=== PATIENT | female | born 1980 | race Caucasian/White ===

== ENCOUNTER 2017-12-07 11:12 | Emergency (ER) | payer BC ==
[2017-12-07] MEDS ORDERED: NORMAL SALINE 1000 ML 1,000 ML IV ONE ×2 (11:34→12:17)
[2017-12-07] MEDS ORDERED: ONDANSETRON HCL INJ/PF 4 MG/2 ML SDV IV ONE (11:35)
[2017-12-07] MEDS ORDERED: MORPHINE SULFATE 10 MG/ML INJ IV ONE (11:35)
--- NOTE | 2017-12-07 11:36 | ER Document Report ---
ED Medical Screen (RME) - General Chief Complaint: Abdominal Pain Stated Complaint: ABDOMINAL PAIN Time Seen by Provider: 12/07/17 11:33 Mode of Arrival: Wheelchair Information source: Patient Notes: This is a 37-year-old female with a history of chronic back pain who was recently placed on prednisone/Toradol/cyclobenzaprine for exacerbation of her back pain. She awoke this morning with acute left flank and left abdominal pain. She has had a kidney stone once in the past but states it does not feel like that. She denies any blood in the urine. She has had diarrhea. She denies any blood in the stool. She denies any nausea or vomiting. She denies fever. She is doubled over in triage. TRAVEL OUTSIDE OF THE [place] IN LAST 30 DAYS: No - Related Data Allergies/Adverse Reactions: gabapentin Allergy (Verified 12/07/17 11:15) pregabalin [From Lyrica] Allergy (Verified 12/07/17 11:15) Past Medical History - Social History Chew tobacco use (# tins/day): No Frequency of alcohol use: None Drug Abuse: None Renal/ Medical History: Denies: Hx Peritoneal Dialysis Physical Exam - Vital signs Vitals: Temp Pulse Resp BP Pulse Ox 99.0 F 63 18 131/75 H 100 12/07/17 11:20 12/07/17 11:20 12/07/17 11:20 12/07/17 11:20 12/07/17 11:20 Course - Vital Signs Vital signs: Temp Pulse Resp BP Pulse Ox 99.0 F 63 18 131/75 H 100 12/07/17 11:20 12/07/17 11:20 12/07/17 11:20 12/07/17 11:20 12/07/17 11:20
[2017-12-07] MEDS ORDERED: HYDROMORPHONE HCL INJ/PF 2 MG/ML AMPULE IV ONE ×2 (12:16→17:52)
[2017-12-07 12:23] LABS: APPEARANCE,URINE SLIGHTLY-CLOUDY; BILIRUBIN,URINE NEGATIVE (NEGATIVE); COLOR,URINE YELLOW; GLUCOSE, URINE NEGATIVE (NEGATIVE); KETONES,URINE NEGATIVE (NEGATIVE); LEUKOCYTE ESTERASE,URINE NEGATIVE (NEGATIVE); NITRITE,URINE NEGATIVE (NEGATIVE); PROTEIN,URINE NEGATIVE (NEGATIVE); URINE SPECIFIC GRAVITY 1.025
--- NOTE | 2017-12-07 12:23 | ER Document Report ---
ED GI/ - General Chief Complaint: Abdominal Pain Stated Complaint: ABDOMINAL PAIN Time Seen by Provider: 12/07/17 11:33 Mode of Arrival: Wheelchair Information source: Patient Notes: Chief complaint: abdominal pain History of complain:( obtained from----patient) 37 years old female, with a history of lower back pain, last Friday treated in urgent care, today this morning woke up with severe abdominal pain and distention, associated with nausea no vomiting. No diarrhea or constipation. One time she when she went to the bathroom she felt sharp pain on the left shoulder region, by the time she came back and laid down the pain has subsided. Denies any precordial pain. Denies any dysuria frequency urgency. Onset: As above Duration: Since this morning Severity: Severe Quality: Sharp Context: Unknown Exacerbating factor and relieving factors: Change of position REVIEW OF SYSTEMS: CONSTITUTIONAL : Denies fever, chills, or sweats. Denies recent illness. EENT: Denies eye, ear, throat, or mouth pain or symptoms. Denies nasal or sinus congestion or discharge. Denies throat, tongue, or mouth swelling or difficulty swallowing. CARDIOVASCULAR: Denies chest pain. Denies palpitations or racing or irregular heart beat. Denies ankle edema. RESPIRATORY: Denies cough, cold, or chest congestion. Denies shortness of breath, difficulty breathing, or wheezing. GASTROINTESTINAL: . Denies vomiting, or diarrhea. Denies blood in vomitus, stools, or per rectum. Denies black, tarry stools. Denies constipation. GENITOURINARY: Denies difficulty urinating, painful urination, burning, frequency, blood in urine, or discharge. FEMALE GENITOURINARY: Denies vaginal bleeding, heavy or abnormal periods, irregular periods. Denies vaginal discharge or odor. MUSCULOSKELETAL: Denies back or neck pain or stiffness. Denies joint pain or swelling. SKIN: Denies rash, lesions or sores. HEMATOLOGIC : Denies easy bruising or bleeding. LYMPHATIC: Denies swollen, enlarged glands. NEUROLOGICAL: Denies confusion or altered mental status. Denies passing out or loss of consciousness. Denies dizziness or lightheadedness. Denies headache. Denies weakness or paralysis or loss of use of either side. Denies problems with gait or speech. Denies sensory loss, numbness, or tingling. Denies seizures. PSYCHIATRIC: Denies anxiety or stress. Denies depression, suicidal ideation, or homicidal ideation. ALL OTHER SYSTEMS REVIEWED AND NEGATIVE. PHYSICAL EXAMINATION: GENERAL: Well-appearing, well-nourished and in moderate to severe discomfort acute distress. HEAD: Atraumatic, normocephalic. EYES: Pupils equal round and reactive to light, extraocular movements intact, conjunctiva are normal. ENT: Nares patent, oropharynx clear without exudates. Moist mucous membranes. NECK: Normal range of motion, supple without lymphadenopathy LUNGS: Breath sounds clear to auscultation bilaterally and equal. No wheezes rales or rhonchi. HEART: Regular rate and rhythm without murmurs ABDOMEN: Soft, appears to be slightly distended diffusely tender, guarding, rigid, nondistended abdomen. No guarding, no rebound. No masses appreciated. Female : deferred Musculoskeletal: Normal range of motion, no pitting or edema. No cyanosis. NEUROLOGICAL: Cranial nerves grossly intact. Normal speech, normal gait. Normal sensory, motor exams PSYCH: Normal mood, normal affect. SKIN: Warm, Dry, normal turgor, no rashes or lesions noted. Dictation was performed using [employer] voice recognition software TRAVEL OUTSIDE OF THE [place] IN LAST 30 DAYS: No - HPI Notes: 12/08/17 09:17 Dictated - Related Data Allergies/Adverse Reactions: gabapentin Allergy (Verified 12/07/17 11:15) pregabalin [From Lyrica] Allergy (Verified 12/07/17 11:15) Past Medical History - General Information source: Patient - Social History Smoking Status: Never Smoker Chew tobacco use (# tins/day): No Frequency of alcohol use: None Drug Abuse: None Family History: Reviewed & Not Pertinent Patient has suicidal ideation: No Patient has homicidal ideation: No Renal/ Medical History: Denies: Hx Peritoneal Dialysis Review of Systems - Review of Systems Notes: Dictated Physical Exam - Vital signs Vitals: Temp Pulse Resp BP Pulse Ox 99.0 F 63 18 131/75 H 100 12/07/17 11:20 12/07/17 11:20 12/07/17 11:20 12/07/17 11:20 12/07/17 11:20 - Notes Notes: Dictated Course - Re-evaluation Re-evalutation: 12/07/17 14:59 The surgical list production zone leader was called, case was discussed. He is going to see her in the ER. Ordered IV antibiotic, patient was rechecked remained stable, pain is tolerable. 12/07/17 15:42 Surgeon came and evaluated, Patient requested transfer to the hospital because of her gastric bypass surgery. - Vital Signs Vital signs: Temp Pulse Resp BP Pulse Ox 100.1 F 78 18 128/66 H 99 12/07/17 17:50 12/07/17 17:50 12/07/17 17:50 12/07/17 17:50 12/07/17 17:50 - Laboratory Result Diagrams: 12/07/17 11:51 12/07/17 11:51 Laboratory results interpreted by me: 12/07/17 12/07/17 11:51 11:51 Hgb 9.9 L Hct 32.2 L MCV 67 L MCH 20.5 L MCHC 30.6 L RDW 18.2 H Urine Urobilinogen 2.0 H - Diagnostic Test Radiology reviewed: Reports reviewed - CT of the abdomen and pelvis reported by radiologist as pneumoperitoneum and ascites. No site of perforation was identified. Discharge - Discharge Clinical Impression: Pneumoperitoneum Ascites Qualifiers: Ascites type: other type Qualified Code(s): R18.8 - Other ascites Condition: Serious Disposition: [facility]
[2017-12-07 12:26] LABS: ABSOLUTE BASOPHILS # (AUTO) 0.1 10^3/uL (0.0-0.2); ABSOLUTE LYMPHOCYTES (AUTO) 3.3 10^3/uL (0.5-4.7); ABSOLUTE MONOCYTES (AUTO) 0.6 10^3/uL (0.1-1.4); ABSOLUTE NEUT (AUTO) 5.9 10^3/uL (1.7-8.2); BASOPHILS % (AUTO) 0.7 % (0-2); EOSINOPHILS % (AUTO) 0.1 % (0-6); HEMATOCRIT 32.2 % (36.0-47.0); HEMOGLOBIN 9.9 g/dL (12.0-15.5); LYMPHOCYTES % (AUTO) 33.2 % (13-45); MEAN CORPUSCULAR HEMOGLOBIN 20.5 pg (27.0-33.4); MEAN CORPUSCULAR HGB CONC 30.6 g/dL (32.0-36.0); MEAN CORPUSCULAR VOLUME 67 fl (80-97); MONOCYTES % (AUTO) 5.7 % (3-13); PLATELET COUNT 287 10^3/uL (150-450); RED BLOOD COUNT 4.81 10^6/uL (3.72-5.28); RED CELL DISTRIBUTION WIDTH 18.2 % (11.5-14.0); SEGMENTED NEUTROPHILS % (AUTO) 60.3 % (42-78); TOTAL CELLS COUNTED % (AUTO) 100 %; WHITE BLOOD COUNT 9.9 10^3/uL (4.0-10.5)
[2017-12-07 12:31] LABS: ALANINE AMINOTRANSFERASE 26 U/L (9-52); ALBUMIN 4.3 g/dL (3.5-5.0); ALKALINE PHOSPHATASE 84 U/L (38-126); ANION GAP 12 (5-19); ASPARTATE AMINO TRANSFERASE 23 U/L (14-36); BILIRUBIN,DIRECT 0.2 mg/dL (0.0-0.4); BILIRUBIN,TOTAL 0.3 mg/dL (0.2-1.3); BLOOD UREA NITROGEN 18 mg/dL (7-20); CALCIUM 9.8 mg/dL (8.4-10.2); CARBON DIOXIDE 26 mmol/L (22-30); CHLORIDE 106 mmol/L (98-107); GLUCOSE 89 mg/dL (75-110); LIPASE 37.3 U/L (23-300); POTASSIUM 3.7 mmol/L (3.6-5.0); SODIUM 144.4 mmol/L (137-145); TOTAL PROTEIN 7.4 g/dL (6.3-8.2)
--- NOTE | 2017-12-07 14:04 | RADIOLOGY REPORT (SQ) ---
EXAM DESCRIPTION: CT ABD/PELVIS WITH IV ONLY COMPLETED DATE/TIME: 12/07/2017 1:46 pm REASON FOR STUDY: Acute abdominal pain rule out perforation COMPARISON: None. TECHNIQUE: CT scan of the abdomen and pelvis performed using helical scanning technique with dynamic intravenous contrast injection. No oral contrast. Images reviewed with lung, soft tissue, and bone windows. Reconstructed coronal and sagittal MPR images reviewed. Delayed images for evaluation of the urinary system also acquired. All images stored on PACS. All CT scanners at this facility use dose modulation, iterative reconstruction, and/or weight based d osing when appropriate to reduce radiation dose to as low as reasonably achievable (ALARA). [facility]: Dose Right [facility]: CareDose [facility]: Dose Right [facility]: Teradose 4D [facility]: ipsy CONTRAST TYPE AND DOSE: contrast/concentration: Isovue 370.00 mg/ml; Total Contrast Delivered: 96.0 ml; Total Saline Delivered: 71.0 ml RENAL FUNCTION: None required. The patient is less than 50 years old. RADIATION DOSE: CT Rad equipment meets quality standard of care and radiation dose reduction techniq ues were employed. CTDIvol: 9.9 - 13.8 mGy. DLP: 1308 mGy-cm.. LIMITATIONS: None. FINDINGS: LOWER CHEST: No significant findings. No nodules or infiltrates. LIVER: Normal size. No masses. No dilated ducts. SPLEEN: Normal size. No focal lesions. PANCREAS: No masses. No significant calcifications. No adjacent inflammation or peripancreatic fluid collections. Pancreatic duct not dilated. GALLBLADDER: Distended. No stones. ADRENAL GLANDS: No significant masses or asymmetry. RIGHT KIDNEY AND URETER: No solid masses. No significant calcification. No hydronephrosis or hydroure ter. LEFT KIDNEY AND URETER: No solid masses. No significant calcification. No hydronephrosis or hydrouret er. AORTA AND VESSELS: No aneurysm. No dissection. Renal arteries, SMA, celiac without stenosis. RETROPERITONEUM: No retroperitoneal adenopathy, hemorrhage or masses. BOWEL AND PERITONEAL CAVITY: Mild pneumoperitoneum. Consistent with viscus perforation. Site of per foration not readily evident. No mechanical bowel obstruction or focal inflammatory changes. Change s of prior gastric bypass. No dilated loops. Ascites is present including moderate fluid in the pel vis. APPENDIX: Normal. PELVIS: As above. Probable small ovarian cysts and follicles but no suspicious mass. Uterus unremar kable. ABDOMINAL WALL: No masses. No hernias. BONES: No significant or acute findings. OTHER: No other significant finding. IMPRESSION: 1. Pneumoperitoneum. Mild free air is consistent with viscus perforation. Site of perf oration not evident. No focal inflammatory changes. No evidence of mechanical bowel obstruction. M oderate pelvic ascites is also noted. TECHNICAL DOCUMENTATION: JOB ID: [id number] Quality ID # 436: Final reports with documentation of one or more dose reduction techniques (e.g., Au tomated exposure control, adjustment of the mA and/or kV according to patient size, use of iterative reconstruction technique) 2010 [employer]- All Rights Reserved Reading location - IP/workstation name: [email or web address]
[2017-12-07] MEDS ORDERED: PIPERACILLIN/TAZOBACTAM 4.5 GM VIAL IV ONE (14:56)
[2017-12-07 17:51] VITALS: BP 128/66
--- NOTE | 2017-12-07 17:52 | ER Document Report ---
Doctor's Note Notes: 12/07/17 17:52 Pt evaluated prior to transfer, stable requesting further pain control
== END 2017-12-07 18:01 | disposition short-term general hospital (02) ==
LOC: ER 11:12
DX: R18.8 Other ascites (principal); K66.8 Other specified disorders of peritoneum; R11.0 Nausea; Z88.6 Allergy status to analgesic agent; Z98.84 Bariatric surgery status
CPT/HCPCS: 96376; 99285; 51702; 96375; 96365; 96366; 36415; 84702; 83690; 85025; 80053; 81001; 83605; 74177; J2270; J1170; J2405; J7030; J2543

== ENCOUNTER 2018-10-07 21:51 | Emergency (ER) | payer BC ==
[2018-10-07] MEDS ORDERED: ASPIRIN 81 MG TABLET, CHEWABLE PO ONE (22:02)
--- NOTE | 2018-10-07 22:58 | RADIOLOGY REPORT (SQ) ---
EXAM DESCRIPTION: XR ABDOMEN SUPINE AND ERECT WITH CHEST (ABD ACUTE SERIES) COMPLETED DATE/TME: 10/07/2018 00:00 CLINICAL HISTORY: 38 years, Female, pain history of gastric bypass COMPARISON: None. NUMBER OF VIEWS: 4 TECHNIQUE: Upright chest with supine and erect views of the abdomen LIMITATIONS: None. FINDINGS: Heart size normal. Lungs clear. No pneumothorax. No free air under the hemidiaphragms. The bowel gas pattern is nonspecific. Large amount of stool throughout colon. A few nondilated air-filled loops of small bowel in the left upper quadrant. No free air IMPRESSION: Negative chest. Large amount of stool in the colon. Several nondilated air-filled loops of small bowel may reflect ileus copyright 2011 [employer]- All Rights Reserved
[2018-10-08] MEDS ORDERED: MORPHINE SULFATE 10 MG/ML INJ IV ONE (00:55)
[2018-10-08] MEDS ORDERED: ONDANSETRON HCL INJ/PF 4 MG/2 ML SDV IV ONE (00:55)
[2018-10-08] MEDS ORDERED: RINGERS SOLUTION,LACTATED 1,000 ML IV ONE (00:57)
--- NOTE | 2018-10-08 00:58 | ER Document Report ---
ED General - General Chief Complaint: Abdominal Pain Stated Complaint: ABDOMINAL PAIN Time Seen by Provider: 10/08/18 00:42 Mode of Arrival: Ambulatory Information source: Patient Notes: 38-year-old female with history of neuropathy, fibromyalgia, chronic back pain, history of perforated ulcer, history of gastric bypass performed in 2016 presents with complaint of left upper quadrant abdominal pain and right lower quadrant abdominal pain. Patient states pain started this afternoon. She d enies it as a intermittent stabbing pain that stated with nausea but no vomiting. Patient reports her last bowel movement yesterday denies any black or bloody stools. Patient denies fever, chills, chest pain, shortness of breath, dysuria, hematuria. TRAVEL OUTSIDE OF THE [place] IN LAST 30 DAYS: No - HPI Onset: This afternoon Onset/Duration: Gradual, Intermittent Quality of pain: Stabbing Severity: Moderate Associated symptoms: Diarrhea, Nausea. denies: Chest pain, Fever, Headache, Vomiting, Shortness of breath Exacerbated by: Denies Relieved by: Denies Similar symptoms previously: Yes Recently seen / treated by doctor: No - Related Data Allergies/Adverse Reactions: gabapentin Allergy (Verified 12/07/17 11:15) pregabalin [From Lyrica] Allergy (Verified 12/07/17 11:15) Past Medical History - General Information source: Patient, [facility] Records - Social History Smoking Status: Never Smoker Frequency of alcohol use: None Drug Abuse: None Lives with: Family Family History: Reviewed & Not Pertinent Patient has suicidal ideation: No Patient has homicidal ideation: No Renal/ Medical History: Denies: Hx Peritoneal Dialysis Review of Systems - Review of Systems Notes: REVIEW OF SYSTEMS: CONSTITUTIONAL : Denies fever, chills, or sweats. Denies recent illness. Denies weight loss, recent hospitalizations. EENT: Denies visual changes, eye pain. Denies sore throat, oral lesions, difficulty swallowing. CARDIOVASCULAR: Denies chest pain. Denies palpitations. Denies lower extremity edema. RESPIRATORY: Denies cough. Denies shortness of breath, wheezing. GASTROINTESTINAL: Denies abdominal distention. Denies vomiting. Denies blood in vomitus, stools, or per rectum. Denies black, tarry stools. Denies constipation. GENITOURINARY: Denies difficulty urinating, painful urination, frequency, blood in urine, or vaginal discharge. MUSCULOSKELETAL: Denies back or neck pain or stiffness. Denies joint pain or swelling. SKIN: Denies rash, lesions or sores. HEMATOLOGIC : Denies easy bruising or bleeding. LYMPHATIC: Denies swollen glands. NEUROLOGICAL: Denies confusion or altered mental status. Denies loss of consciousness. Denies dizziness or lightheadedness. Denies headache. Denies weakness or paralysis. Denies problems difficulty with ambulation, slurred speech. Denies sensory loss, numbness, or tingling. Denies seizures. PSYCHIATRIC: Denies anxiety or stress. Denies depression, suicidal ideation, or homicidal ideation. Denies visual or auditory hallucinations. Physical Exam - Vital signs Vitals: Temp Pulse Resp BP Pulse Ox 98.2 F 50 L 22 H 129/79 H 100 10/07/18 22:20 10/07/18 22:20 10/07/18 22:20 10/07/18 22:20 10/07/18 22:20 - Notes Notes: PHYSICAL EXAMINATION: GENERAL: Well-appearing, well-nourished and in no acute distress. HEAD: Atraumatic, normocephalic. EYES: Pupils equal round and reactive to light, extraocular movements intact, conjunctiva are normal. ENT: Nares patent, oropharynx clear without exudates. Moist mucous membranes. NECK: Normal range of motion, supple without lymphadenopathy LUNGS: Breath sounds clear to auscultation bilaterally and equal. No wheezes rales or rhonchi. HEART: Regular rate and rhythm without murmurs ABDOMEN: Soft, tenderness with palpation to the right upper quadrant, left upper quadrant. Nondistended abdomen. No guarding, no rebound. No masses appreciated. Female : deferred Musculoskeletal: Normal range of motion, no pitting or edema. No cyanosis. NEUROLOGICAL: Cranial nerves grossly intact. Normal speech, normal gait. Normal sensory, motor exams PSYCH: Normal mood, normal affect. SKIN: Warm, Dry, normal turgor, no rashes or lesions noted. Course - Re-evaluation Re-evalutation: 10/08/18 18:16 Laboratory 10/08/18 10/08/18 10/08/18 01:20 01:20 01:20 WBC 6.1 RBC 4.99 Hgb 13.8 Hct 41.4 MCV 83 MCH 27.7 MCHC 33.4 RDW 19.7 H Plt Count 193 Seg Neutrophils % 53.2 Lymphocytes % 38.0 Monocytes % 7.3 Eosinophils % 1.1 Basophils % 0.4 Absolute Neutrophils 3.3 Absolute Lymphocytes 2.3 Absolute Monocytes 0.4 Absolute Eosinophils 0.1 Absolute Basophils 0.0 Platelet Comment ADEQUATE Anisocytosis 2+ Ovalocytes SLIGHT Stomatocytes SLIGHT Stephany Cells SLIGHT Schistocytes SLIGHT Sodium 138.3 Potassium 3.8 Chloride 104 Carbon Dioxide 26 Anion Gap 8 BUN 11 Creatinine 0.69 Est GFR ( Amer) > 60 Est GFR (Non-Af Amer) > 60 Glucose 81 Calcium 9.1 Total Bilirubin 0.4 Direct Bilirubin 0.2 Neonat Total Bilirubin Not Reportable Neonat Direct Bilirubin Not Reportable Neonat Indirect Bili Not Reportable AST 24 ALT 23 Alkaline Phosphatase 100 Total Protein 7.3 Albumin 4.3 Lipase 104.6 Urine Color Urine Appearance Urine pH Ur Specific [place] Urine Protein Urine Glucose (UA) Urine Ketones Urine Blood Urine Nitrite Urine Bilirubin Urine Urobilinogen Ur Leukocyte Esterase Urine WBC (Auto) Urine RBC (Auto) Squamous Epi Cells Auto Urine Mucus (Auto) Urine Ascorbic Acid Urine HCG, Qual NEGATIVE 10/08/18 01:20 WBC RBC Hgb Hct MCV MCH MCHC RDW Plt Count Seg Neutrophils % Lymphocytes % Monocytes % Eosinophils % Basophils % Absolute Neutrophils Absolute Lymphocytes Absolute Monocytes Absolute Eosinophils Absolute Basophils Platelet Comment Anisocytosis Ovalocytes Stomatocytes [place] Cells Schistocytes Sodium Potassium Chloride Carbon Dioxide Anion Gap BUN Creatinine Est GFR ( Amer) Est GFR (Non-Af Amer) Glucose Calcium Total Bilirubin Direct Bilirubin Neonat Total Bilirubin Neonat Direct Bilirubin Neonat Indirect Bili AST ALT Alkaline Phosphatase Total Protein Albumin Lipase Urine Color YELLOW Urine Appearance CLEAR Urine pH 5.0 Ur Specific [place] 1.020 Urine Protein NEGATIVE Urine Glucose (UA) NEGATIVE Urine Ketones NEGATIVE Urine Blood NEGATIVE Urine Nitrite NEGATIVE Urine Bilirubin NEGATIVE Urine Urobilinogen NEGATIVE Ur Leukocyte Esterase NEGATIVE Urine WBC (Auto) 1 Urine RBC (Auto) 1 Squamous Epi Cells Auto <1 Urine Mucus (Auto) MANY Urine Ascorbic Acid NEGATIVE Urine HCG, Qual Acute Abdomen Series 10/07/18 00:00 IMPRESSION: Negative chest. Large amount of stool in the colon. Several nondilated air-filled loops of small bowel may reflect ileus copyright 2011 [employer]- All Rights Reserved Abdomen/Pelvis CT 10/07/18 23:17 IMPRESSION: Large amount of stool in the colon. Small amount of free fluid in the pelvis, likely physiologic. Fatty infiltrative change to the liver TECHNICAL DOCUMENTATION: Quality ID # 436: Final reports with documentation of one or more dose reduction techniques (e.g., Automated exposure control, adjustment of the mA and/or kV according to patient size, use of iterative reconstruction technique) copyright 2011 [employer]- All Rights Reserved Temp Pulse Resp BP Pulse Ox 98.5 F 49 L 22 H 105/66 99 10/08/18 03:27 10/08/18 03:10/07/18 22:20 10/08/18 03:27 10/08/18 03:27 38-year-old female with history of gastric bypass, previous perforation requirin g partial colectomy presents with complaint of abdominal pain. Vital signs reviewed and within normal limits. Patient does not appear toxic or dehydrated. She is in no acute distress. Patient has diffuse tenderness with palpation in the right lower quadrant, right upper quadrant, left upper quadrant. CT of the abdomen and pelvis with IV and oral contrast shows a large amount of stool in the colon, no obvious obstruction, perforation. Patient provided pain medication, Zofran. Patient was evaluated and treated as appropriate for the patient's presenting symptoms and complaint, with consideration of any critical or life threatening conditions that may be associated with their obtained history and exam as noted above. All results were discussed with patient. Patient provided the opportunity to ask questions, and express concerns. Patient was educated on treatments based on their presumed diagnosis as noted above. At this time we will discharge the patient with return precautions and follow-up recommendations. Verbal discharge instructions given a the bedside. Medication warnings reviewed. Patient is in agreement with this plan and has verbalized understanding of return precautions. After careful consideration I feel that that patient can be safely discharged from the emergency department, they were advised to followup with a primary care physician in 2-3 days. Dictation on this chart was performed using voice recognition software and may result in unintended grammatical, spelling, syntax or errors. - Vital Signs Vital signs: Temp Pulse Resp BP Pulse Ox 98.5 F 49 L 22 H 105/66 99 10/08/18 03:27 10/08/18 03:27 10/07/18 22:20 10/08/18 03:27 10/08/18 03:27 - Laboratory Result Diagrams: 10/08/18 01:20 10/08/18 01:20 Laboratory results interpreted by me: 10/08/18 01:20 RDW 19.7 H - Diagnostic Test Radiology reviewed: Image reviewed, Reports reviewed Discharge - Discharge Clinical Impression: Nausea Abdominal pain Qualifiers: Abdominal location: generalized Qualified Code(s): R10.84 - Generalized abdominal pain Constipation Qualifiers: Constipation type: unspecified constipation type Qualified Code(s): K59.00 - Constipation, unspecified Condition: Good Disposition: HOME, SELF-CARE Instructions: Abdominal Pain ([facility]), Bulk Laxatives, Constipation ([facility]), Nausea or Vomiting, Nonspecific ([facility]) Prescriptions: Na Phos,M-B/Na Phos,Di-Ba [Fleet Enema (Adult) 133 ml] 133 ml NE DAILY 4 Days #4 enema Ondansetron [Zofran Odt 4 mg Tablet] 1 - 2 tab PO Q4H PRN #15 tab.rapdis PRN Reason: For Nausea/Vomiting Polyethylene Glycol 3350 [Miralax Powder 17 gm/Packet] 1 packet PO DAILY #10 pkg Forms: Elevated Blood Pressure
[2018-10-08 01:31] LABS: ABSOLUTE EOSINOPHILS # (AUTO) 0.1 10^3/uL (0.0-0.6); ABSOLUTE LYMPHOCYTES (AUTO) 2.3 10^3/uL (0.5-4.7); ABSOLUTE MONOCYTES (AUTO) 0.4 10^3/uL (0.1-1.4); ABSOLUTE NEUT (AUTO) 3.3 10^3/uL (1.7-8.2); BASOPHILS % (AUTO) 0.4 % (0-2); EOSINOPHILS % (AUTO) 1.1 % (0-6); HEMATOCRIT 41.4 % (36.0-47.0); HEMOGLOBIN 13.8 g/dL (12.0-15.5); MEAN CORPUSCULAR HEMOGLOBIN 27.7 pg (27.0-33.4); MEAN CORPUSCULAR HGB CONC 33.4 g/dL (32.0-36.0); MEAN CORPUSCULAR VOLUME 83 fl (80-97); MONOCYTES % (AUTO) 7.3 % (3-13); PLATELET COUNT 193 10^3/uL (150-450); RED BLOOD COUNT 4.99 10^6/uL (3.72-5.28); RED CELL DISTRIBUTION WIDTH 19.7 % (11.5-14.0); SEGMENTED NEUTROPHILS % (AUTO) 53.2 % (42-78); TOTAL CELLS COUNTED % (AUTO) 100 %; WHITE BLOOD COUNT 6.1 10^3/uL (4.0-10.5)
[2018-10-08 01:54] LABS: ALANINE AMINOTRANSFERASE 23 U/L (9-52); ALBUMIN 4.3 g/dL (3.5-5.0); ALKALINE PHOSPHATASE 100 U/L (38-126); ANION GAP 8 (5-19); ASPARTATE AMINO TRANSFERASE 24 U/L (14-36); BILIRUBIN,DIRECT 0.2 mg/dL (0.0-0.4); BILIRUBIN,TOTAL 0.4 mg/dL (0.2-1.3); BLOOD UREA NITROGEN 11 mg/dL (7-20); CALCIUM 9.1 mg/dL (8.4-10.2); CARBON DIOXIDE 26 mmol/L (22-30); CHLORIDE 104 mmol/L (98-107); GLUCOSE 81 mg/dL (75-110); LIPASE 104.6 U/L (23-300); POTASSIUM 3.8 mmol/L (3.6-5.0); SODIUM 138.3 mmol/L (137-145); TOTAL PROTEIN 7.3 g/dL (6.3-8.2)
[2018-10-08 01:57] LABS: ANISOCYTOSIS 2+; OVALOCYTES SLIGHT; SCHISTOCYTES SLIGHT; STOMATOCYTES SLIGHT
[2018-10-08 01:58] LABS: BURR CELLS SLIGHT; PLATELET COMMENT ADEQUATE
[2018-10-08 02:26] LABS: APPEARANCE,URINE CLEAR; BILIRUBIN,URINE NEGATIVE (NEGATIVE); COLOR,URINE YELLOW; GLUCOSE, URINE NEGATIVE (NEGATIVE); KETONES,URINE NEGATIVE (NEGATIVE); LEUKOCYTE ESTERASE,URINE NEGATIVE (NEGATIVE); NITRITE,URINE NEGATIVE (NEGATIVE); PROTEIN,URINE NEGATIVE (NEGATIVE); UROBILINOGEN,URINE NEGATIVE mg/dL (<2.0)
--- NOTE | 2018-10-08 02:47 | RADIOLOGY REPORT (SQ) ---
EXAM DESCRIPTION: CT ABDOMEN PELVIS WITH IV CONTRAST COMPLETED DATE/TME: 10/07/2018 23:17 CLINICAL HISTORY: 38 years, Female, abdominal pain. HCG NEG. CREAT 0.69 COMPARISON: 12/07/2017 CT TECHNIQUE: 588 Images stored on PACS. All CT scanners at this facility use dose modulation, iterative reconstruction, and/or weight based dosing when appropriate to reduce radiation dose to as low as reasonably achievable (ALARA). [facility]: Dose Right [facility]: CareDose [facility]: Dose Right [facility]: Teradose 4D [facility]: [employer] LIMITATIONS: None. FINDINGS: Limited evaluation of the lung bases is unremarkable. Osseous structures are grossly intact. Fatty infiltrative change to the liver. The spleen, adrenal glands, pancreas, kidneys are unremarkable. Gallbladder is present. Post surgical changes in the epigastric region. Normal appendix. No gross evidence for bowel obstruction. Large amount of stool in the colon. Small amount of free fluid in the pelvis which is likely physiologic. No free air. IMPRESSION: Large amount of stool in the colon. Small amount of free fluid in the pelvis, likely physiologic. Fatty infiltrative change to the liver TECHNICAL DOCUMENTATION: Quality ID # 436: Final reports with documentation of one or more dose reduction techniques (e.g., Automated exposure control, adjustment of the mA and/or kV according to patient size, use of iterative reconstruction technique) copyright 2011 [employer]- All Rights Reserved
[2018-10-08 03:31] VITALS: BP 105/66
== END 2018-10-08 03:53 | disposition home or self-care (01) ==
LOC: ER 21:51
DX: R10.12 Left upper quadrant pain (principal); R10.31 Right lower quadrant pain; R10.11 Right upper quadrant pain; K59.00 Constipation, unspecified; R19.7 Diarrhea, unspecified; R11.0 Nausea; G89.29 Other chronic pain; M54.9 Dorsalgia, unspecified; Z98.84 Bariatric surgery status; Z90.49 Acquired absence of other specified parts of digestive tract
CPT/HCPCS: 99284; 96361; 96374; 96375; 36415; 83690; 85025; 81025; 80053; 81001; 74022; 74177; J2270; J2405; J7120